=== PATIENT | female | born 1995 | race Caucasian/White ===

== ENCOUNTER 2019-05-11 11:18 | Emergency (ER) | payer SELFPAY ==
[~2019-05-11] VITALS: Ht 162.6 cm; Wt 59.0 kg
[2019-05-11] MEDS ORDERED: OXYCODONE HCL/ACETAMINOPHEN 5/325MG TABLET PO ONE (12:15)
[2019-05-11 14:20] VITALS: BP 122/72
== END 2019-05-11 14:25 | disposition home or self-care (01) ==
LOC: ER 11:18
DX: S40.012A Contusion of left shoulder, initial encounter (principal); S60.511A Abrasion of right hand, initial encounter; V49.40XA Driver injured in collision with unspecified motor vehicles in traffic accident, initial encounter; Y93.89 Activity, other specified
CPT/HCPCS: 73030; 73130; 81025; 99284